=== PATIENT | female | born 1960 | race Hispanic/Latino ===

== ENCOUNTER 2018-02-04 11:53 | Emergency (ER) | payer MEDICARE ==
[~2018-02-04] VITALS: Ht 167.6 cm; Wt 103.0 kg
[~2018-02-04 11:53] MED LIST: ACIDOPHILUS1 EAC3; AMLODIPINE BESY10 MG PO; FOLIC ACID1 MG PO; LEVETIRACETAM500 MG PO; OMEPRAZOLE40 MG PO; PANTOPRAZOLE SO40 MG PO; POLYETHYLENE GL17 GM PO; PROPRANOLOL HCL20 MG PO; TIZANIDINE HCL4 MG PO; TRAZODONE HCL50 MG PO; VENTOLIN HFA18 GM INH; VITAMIN D1000 UNI1 PO
[2018-02-04] MEDS ORDERED: ALBUTEROL/IPRATROPIUM 3 ML NEB NEB ONE (13:00)
--- NOTE | 2018-02-04 13:31 | Diagnostic Imaging Report ---
EXAM: XR CHEST 2 VIEWS DATE: 02/04/2018 12:47 PM INDICATION: Pain COMPARISON: None FINDINGS: Lines and Tubes: Right chest wall port tip overlying SVC. Small kink present distal aspect of catheter. Heart and Mediastinum: Upper limits of normal. Lungs and Pleura: Defined opacities lung bases with no focal consolidation on lateral view. Bones and Soft Tissues: No acute findings. IMPRESSION: 1. Right chest wall port with distal aspect of catheter questionably kinked. 2. Ill-defined opacities lung bases could represent atelectasis or infectious process. No focal consolidation, however. Signed by: Dr. Shyam Licea MD on 02/04/2018 1:28 PM
[2018-02-04] MEDS ORDERED: AZITHROMYCIN250 MG PO (19:39)
--- OUTSIDE RECORDS SUMMARY | 2018-02-10 12:39 | XMS REPORT | Summary of Care ---
Author Author [facility] Organization [facility] Address Unknown Phone Unavailable Encounter HQ Kori(FIN) [id number] Date(s): 01/19/15 - 01/19/[address] [address]- Discharge Disposition: Home Attending Physician: Malini Diamond MD Admitting Physician: Malini Diamond MD Vital Signs No data available for this section Problem List Condition Effective Dates Status Health Status Informant Brain Active tumor(Confirmed) Carotid artery 03/04/11 Active stenosis1, 2 Chest pain3, 4 03/04/11 Active Craniotomy(Confirmed Active ) Family history: Active Tuberculosis(Confirm ed)5 Hyperlipidemia6, 7 Active Hypertension(Confirm Active ed) Hypertension(Confirm Active ed) Hypertensive Active disorder8, 9 Hypoglycemia(Confirm Active ed) [place] - Myocardial Active infarction(Confirmed ) Migraine(Confirmed) Active Mixed 03/04/11 Active [id number], 11 Peripheral vascular Active [id number], 13 Seizure(Confirmed) Active Sleep apnea14, 15 04/11/11 Active Stroke(Confirmed) Active 1Data migrated from [employer] on 09/26/14. 2Data migrated from [employer] on 09/26/14. 3Data migrated from [employer] on 09/26/14. 4Data migrated from [employer] on 09/26/14. 5currently lives with a uncle for 3 years with TB 6Data migrated from [employer] on 09/26/14. 7Data migrated from [employer] on 09/26/14. 8Data migrated from [employer] on 09/26/14. 9Data migrated from [employer] on 09/26/14. 10Data migrated from [employer] on 09/26/14. 11Data migrated from [employer] on 09/26/14. 12Data migrated from [employer] on 09/26/14. 13Data migrated from [employer] on 09/26/14. 14Data migrated from [employer] on 09/26/14. 15Data migrated from [employer] on 09/26/14. Allergies, Adverse Reactions, Alerts Substance Reaction Severity Status corticosteroids1, 2 HYPERTENSION AND VOMITING COMPLICATING Active , CHILDBIRTH AND THE PUERPERIUM Swelling, NOS lidocaine Hives Active Itching 1Data migrated from [employer] on 11/24/14. Originally documented as STEROIDS. Hives 2specifically decadron Medications No data available for this section Results No data available for this section Immunizations No data available for this section Procedures Procedure Date Related Diagnosis Body Site Hysterectomy Social History Social History Type Response Assessment and Plan No data available for this section
--- OUTSIDE RECORDS SUMMARY | 2018-02-10 12:39 | XMS REPORT | Summary of Care ---
Author Author [facility] Organization [facility] Address Unknown Phone Unavailable Encounter BILL Sheikh(FIN) [id number] Date(s): 06/05/16 - 06/05/16 [facility] [address], [place], [place] [address]- [phone] Discharge Diagnosis: Atypical chest pain Discharge Diagnosis: Acute hypokalemia Discharge Diagnosis: Aching headache Discharge Diagnosis: Accelerated essential hypertension Discharge Disposition: Home or Self Care Attending Physician: Arpit Chu MD Vital Signs 1 2 3 Most recent to oldest [Reference Range]: 167.64 cm (06/05/16 7:31 PM) Height 98.1 DegF (06/05/16 7:31 PM) Temperature Oral [96.4-99.1 DegF] 139/65 mmHg (06/05/16 10:00 PM) 136/63 mmHg (06/05/16 9:30 PM) 149/63 mmHg *HI* (06/05/16 9:00 PM) Blood Pressure [90-140/60-90 mmHg] 20 BRMIN (06/05/16 10:00 PM) 20 BRMIN (06/05/16 9:30 PM) 20 BRMIN (06/05/16 9:00 PM) Respiratory Rate [14-20 BRMIN] 60 bpm (06/05/16 10:00 PM) 66 bpm (06/05/16 9:30 PM) 70 bpm (06/05/16 9:00 PM) Peripheral Pulse Rate [60-100 bpm] 100 kg (06/05/16 7:31 PM) Weight 35.58 m2 (06/05/16 7:31 PM) Body Mass Index Problem List Condition Effective Dates Status Health Status Informant Afib(Confirmed) Resolved Brain Active tumor(Confirmed) Carotid artery 03/04/11 Active stenosis1, 2 Chest pain3, 4 03/04/11 Active Craniotomy(Confirmed Active ) Family history: Active Tuberculosis(Confirm ed)5 Hyperlipidemia6, 7 Active Hypertension(Confirm Active ed) Hypertension(Confirm Active ed) Hypertensive Active disorder8, 9 Hypoglycemia(Confirm Active ed) Brain Resolved tumor(Confirmed) [place] - Myocardial Active infarction(Confirmed ) Migraine(Confirmed) Active Mixed 03/04/11 Active oxnnlgaeexmnrn17, 11 Peripheral vascular Active [id number], 13 Seizure(Confirmed) Active Sleep apnea14, 15 04/11/11 [...] documented as STEROIDS. Hives 2specifically decadron Medications diphenhydrAMINE 12.5 mg, Route: IVP, ONCE, Dosing Weight 100, kg, Priority: STAT, Start date: 20:18:00 [employer]LE [employer]TER, Stop date: 06/05/16 20:18:00 [employer] Start Date: 06/05/16 Stop Date: 06/05/16 Status: Completed ketOROLAC 30 mg, Route: IVP, Drug form: INJ, ONCE, Dosing Weight 100, kg, Priority: STAT, Start date: 06/05/16 20:18:00 PILE FABRIC KNITTER, Stop date: 06/05/16 20:18:00 PILE [employer] KNITTER Start Date: 06/05/16 Stop Date: 06/05/16 Status: Completed labetalol 20 mg, Route: IVP, ONCE, Dosing Weight 100, kg, Priority: STAT, Start date: 12/12 20:18:00 PILE FABRIC KNITTER, Stop date: 06/05/16 20:18:00 PILE [employer] KNITTER Start Date: 06/05/16 Stop Date: 06/05/16 Status: Completed metoclopramide 10 mg, Route: IVP, Drug form: INJ, ONCE, Dosing Weight 100, kg, Priority: STAT, Start date: 06/05/16 20:18:00 PILE FABRIC KNITTER, Stop date: 06/05/16 20:18:00 PILE F[employer]RIC KNITTER Start Date: 06/05/16 Stop Date: 06/05/16 Status: Completed potassium chloride 20 mEq oral tablet, extended release 40 mEq, 2 tab, Route: PO, Drug form: ERTAB, ONCE, Dosing Weight 100, kg, Priorit y: STAT, Start date: 06/05/16 22:23:00 PILE FABRIC KNITTER, Stop date: 06/05/16 22:23:00 PILE F[employer] KNITTER Notes: (Same as: K-Dur 20)"Do Not Crush" With food and full glass of water Start Date: 06/05/16 Stop Date: 06/05/16 Status: Completed Reglan 10 mg oral tablet 10 mg, PO, Q6H, PRN nausea/dizziness/headache, X 5 day, # 20 tab, 0 Refill(s) Start Date: 06/05/16 Stop Date: 06/10/16 Status: Ordered Saline Flush 0.9% 10 mL, Route: IVP, Drug Form: INJ, Dosing Weight 100, kg, PRN, PRN Line Flush, S tart date: 06/05/16 20:18:00 PILE FABRIC KNITTER, Duration: 1 day, Stop date: 06/06/16 20:17:00 PILE [employer] KNITTER Notes: (Same as: BD Posiflush) Start Date: 06/05/16 Stop Date: 06/06/16 Status: Discontinued Ultram 50 mg oral tablet 1 - 2 tabs, PO, Q6H, PRN Pain Score 6-10, X 4 day, # 20 tab, 0 Refill(s) Start Date: 06/05/16 Stop Date: 06/09/16 Status: Ordered Results ELECTROLYTES Most recent to 1 oldest [Reference Range]: Sodium Lvl [135-145 143 mEq/L mEq/L] (06/05/16 8:23 PM) Potassium Lvl 3.3 mEq/L [3.5-5.1 mEq/L] *LOW* (06/05/16 8:23 PM) Chloride Lvl [95-109 105 mEq/L mEq/L] (06/05/16 8:23 PM) CO2 [24-32 mEq/L] 30 mEq/L (06/05/16 8:23 PM) AGAP [10.0-20.0 11.3 mEq/L mEq/L] (06/05/16 8:23 PM) CHEM PANEL Most recent to 1 oldest [Reference Range]: Creatinine Lvl 0.58 mg/dL [0.50-1.40 mg/dL] (06/05/16 8:23 PM) eGFR 102 mL/min/1.73m2 1 *NA* (06/05/16 8:23 PM) BUN [7-22 mg/dL] 8 mg/dL (06/05/16 8:23 PM) B/C Ratio [6-25] 14 (06/05/16 8:23 PM) Glucose Lvl [70-99 102 mg/dL mg/dL] *HI* (06/05/16 8:23 PM) Total Protein 8.0 g/dL [6.4-8.4 g/dL] (06/05/16 8:23 PM) Albumin Lvl [3.5-5.0 4.0 g/dL g/dL] (06/05/16 8:23 PM) Globulin [2.7-4.2 4.0 g/dL g/dL] (06/05/16 8:23 PM) A/G Ratio [0.7-1.6] 1.0 (06/05/16 8:23 PM) Calcium Lvl 9.1 mg/dL [8.5-10.5 mg/dL] (06/05/16 8:23 PM) ALT [0-65 unit/L] 43 unit/L (06/05/16 8:23 PM) AST [0-37 unit/L] 28 unit/L (06/05/16 8:23 PM) Alk Phos [39-136 185 unit/L unit/L] *HI* (06/05/16:23 PM) Bili Total [0.2-1.3 0.3 mg/dL mg/dL] (06/05/16 8:23 PM) 1Result Comment: The eGFR is calculated using the CKD-EPI formula. In most young, healthy individuals the eGFR will be >90 mL/min/1.73m2. The eGFR declines with age. An eGFR of 60-89 may be normal in some populations, particularly the elderly, for whom the CKD-EPI formula has not been extensively validated. Use of the eGFR is not recommended in the following populations: Individuals with unstable creatinine concentrations, including patients and those with serious co-morbid conditions. Patients with extremes in muscle mass or diet. The data above are obtained from the National Kidney Disease Education Program ( NKDEP) which additionally recommends that when the eGFR is used in patients with extremes of body mass index for purposes of drug dosing, the eGFR should be mul tiplied by the estimated BMI. CARDIAC ENZYMES Most recent to 1 oldest [Reference Range]: Total CK [12-191 81 unit/L unit/L] (06/05/16:23 PM) Troponin-I 0.02 ng/mL [0.00-0.40 ng/mL] (06/05/16 8:23 PM) HEMATOLOGY Most recent to 1 oldest [Reference Range]: WBC [3.7-10.4 K/CMM] 11.1 K/CMM *HI* (06/05/16:23 PM) RBC [4.20-5.40 4.93 M/CMM M/CMM] (06/05/16 8:23 PM) Hgb [12.0-16.0 g/dL] 14.6 g/dL (06/05/16 8:23 PM) Hct [36.0-48.0 %] 43.0 % (06/05/16 8:23 PM) MCV [80.0-98.0 fL] 87.3 fL (06/05/16 8:23 PM) MCH [27.0-31.0 pg] 29.7 pg (06/05/16 8:23 PM) MCHC [32.0-36.0 34.0 g/dL g/dL] (06/05/16 8:23 PM) RDW [11.5-14.5 %] 12.2 % (06/05/16 8:23 PM) Platelet [133-450 384 K/CMM K/CMM] (06/05/16 8:23 PM) MPV [7.4-10.4 fL] 8.7 fL (06/05/16 8:23 PM) Segs [45.0-75.0 %] 63.3 % (06/05/16 8:23 PM) Lymphocytes 28.1 % [20.0-40.0 %] (06/05/16 8:23 PM) Monocytes [2.0-12.0 6.3 % %] (06/05/16 8:23 PM) Eosinophils [0.0-4.0 1.4 % %] (06/05/16 8:23 PM) Basophils [0.0-1.0 0.9 % %] (06/05/16 8:23 PM) Segs-Bands # 7.0 K/CMM [1.5-8.1 K/CMM] (06/05/16 8:23 PM) Lymphocytes # 3.1 K/CMM [1.0-5.5 K/CMM] (06/05/16 8:23 PM) Monocytes # [0.0-0.8 0.7 K/CMM K/CMM] (06/05/16 8:23 PM) Eosinophils # 0.2 K/CMM [0.0-0.5 K/CMM] (06/05/16 8:23 PM) Basophils # [0.0-0.2 0.1 K/CMM K/CMM] (06/05/16 8:23 PM) PT [12.0-14.7 12.8 seconds seconds] (06/05/16 8:23 PM) INR [0.85-1.17] 0.94 (06/05/16 8:23 PM) PTT [22.9-35.8 31.8 seconds seconds] (06/05/16 8:23 PM) Immunizations No data available for this section Procedures Procedure Date Related Diagnosis Body Site Hysterectomy Social History Social History Type Response Smoking Status Former smoker; Type: Cigarettes; Ready to change: Yes; Concerns about tobacco use in household: No; Exposure to Tobacco Smoke None; Cigarette Smoking Last 365 Days No; Reg Smoking Cessation Counseling No Assessment and Plan No data available for this section
--- OUTSIDE RECORDS SUMMARY | 2018-02-10 12:39 | XMS REPORT | CCD ---
Author Author Auto Generated Organization [facility] Address Unknown Phone Unavailable Care Team Providers Care Clinical Coordinator Name Role Phone Calvin Rehman CP Allergies, Adverse Reactions, Alerts Substance Reaction Status corticosteroids1 HYPERTENSION AND VOMITING COMPLICATING , Active CHILDBIRTH AND THE PUERPERIUM Swelling, NOS lidocaine Hives Active Itching 1specifically decadron Problem List Condition Effective Dates Status Brain tumor Active Craniotomy Active Family history: Tuberculosis1 Active Hypertension Active Hypertension Active Hypoglycemia Active ID - Myocardial infarction Active Migraine Active Seizure Active Stroke Active 1currently lives with a uncle for 3 years with TB Medications Medication Instructions Start Date End Date Status [place] 5/325 oral 1 tab, Route: PO, Dosing Weight 01/04/2013 01/04/2013 Completed tablet 99.545, kg, ONCE, Start date: 01/04/13 9:12:00, Stop date: 01/04/13 9:12:00 Pyridium 100 mg, Route: PO, ONCE, Dosing 01/04/2013 01/04/2013 Completed Weight 99.545, kg, Priority: STAT, Start date: 01/04/13 9:12:00, Stop date: 01/04/13 9:12:00 Diflucan 100 mg oral 100 mg, 1 tab, PO, Daily, 2 tab, 01/04/2013 01/06/2013 Ordered tablet Substitution Allowed, TAB Motrin 600 mg oral 600 mg, 1 tab, PO, Q6H, PRN, take 01/04/2013 Ordered tablet with food, 30 tab, Pain, Substitution Allowed take with food [place] 5/325 oral 1 tab, PO, Q4H, PRN, 15 tab, for 01/04/2013 Ordered tablet pain, Substitution Allowed, Maintenance, TAB Zofran 4 mg oral 4 mg, 1 tab, PO, BID, 10 tab, 01/04/2013 Ordered tablet Substitution Allowed Pyridium 100 mg oral 100 mg, 1 tab, PO, TID, 21 tab, 01/04/2013 01/11/2013 Ordered tablet Substitution Allowed, TAB Bactrim DS oral 1 tab, PO, BID, 28 tab, 01/04/2013 01/18/2013 Ordered tablet Substitution Allowed, Maintenance, TAB Vital Signs Most recent to oldest [Reference Range]: 1 Height 170.18 cm (01/04/2013 08:47:00) Temperature Oral [96.4-99.1 DegF] 97.2 DegF (01/04/2013 08:47:00) Systolic Blood Pressure [90-140 mmHg] 134 mmHg (01/04/2013 08:47:00) Diastolic Blood Pressure [60-90 mmHg] 80 mmHg (01/04/2013 08:47:00) Respiratory Rate [14-20 BRMIN] 18 BRMIN (01/04/2013 08:47:00) Peripheral Pulse Rate [60-100 bpm] 78 bpm (01/04/2013 08:47:00) Weight 99.545 kg (01/04/2013 08:47:00) Results URINALYSIS Most recent to oldest [Reference Range]: 1 UA Turbidity [Clear] Slight Cloudy (01/04/2013 09:01:00) UA Color [Yellow] Yellow *NA* (01/04/2013 09:01:00) UA pH [5.0-8.0] 6.0 (01/04/2013 09:01:00) UA Spec Grav [<=1.030] 1.020 (01/04/2013 09:01:00) UA Glucose [Negative] Negative (01/04/2013 09:01:00) UA Blood [Negative] Large *ABN* (01/04/2013 09:01:00) UA Ketones [Negative] Negative *NA* (01/04/2013 09:01:00) UA Protein [Negative mg/dL] 30 mg/dL *ABN* (01/04/2013 09:01:00) UA Urobilinogen [0.1-1.0 EU/dL] 0.2 EU/dL (01/04/2013 09:01:00) UA Bili [Negative] Negative *NA* (01/04/2013 09:01:00) UA Leuk Est [Negative] Moderate *ABN* (01/04/2013 09:01:00) UA Nitrite [Negative] Positive *ABN* (01/04/2013 09:01:00) UA WBC [None Seen /HPF] 21-50 /HPF *ABN* (01/04/2013 09:01:00) UA RBC [0-2 /HPF] >100 /HPF *ABN* (01/04/2013 09:01:00) UA Bacteria [None Seen /HPF] Moderate /HPF (01/04/2013 09:01:00) UA Sq Epi [Few /LPF] Few /LPF (01/04/2013 09:01:00) Micro? Performed (01/04/2013 09:01:00)
--- OUTSIDE RECORDS SUMMARY | 2018-02-10 12:39 | XMS REPORT | CCD ---
Author Author Auto Generated Organization [facility] Address Unknown Phone Unavailable Care Team Providers Care Adaptive Physical Educator Name Role Phone Aurora Barton Keerthi CP [phone] PCP, None CP Unavailable [employer], Login CP Unavailable Anjali Heredia CP Unavailable Jess Hale CP Shakila Sethi CP [phone] Ajay Tapia RP Allergies, Adverse Reactions, Alerts Substance Reaction Status anabolic steroids high blood pressure?? Active NKDA ?? Canceled Problem List Condition Effective Dates Status Craniotomy ?? Active Vital Signs Most recent to oldest [Reference Range]: 1 Height 167.64 cm (01/17/2011 12:37:00) ?? Weight 86.364 kg (01/17/2011 12:37:00) ??
--- OUTSIDE RECORDS SUMMARY | 2018-02-10 12:39 | XMS REPORT | Continuity of Care Document ---
Author Author [facility] Interface Address Unknown Phone Unavailable Problems Problem Status Onset Date Classification Date Reported Comments Source Discharge Diagnosis: Atypical chest pain 06/05/2016 06/08/2016 [facility] Dis[facility] Diagnosis: Acute hypokalemia 06/05/2016 06/08/2016 [facility] Dis[facility] Diagnosis: Aching headache 06/05/2016 06/08/2016 [facility] Diagnosis: Accelerated essential hypertension 06/05/2016 06/08/2016 [facility] CHEST PAIN HEADACHE Active 06/05/2016 [facility] 592.0 Active 01/19/2015 [facility] 592.0 - CALCULUS OF KID Active 01/19/2015 [facility] UNABLE TO URINATE Active 01/04/2013 [facility] Sleep apnea<sup>14, 15</sup> Active 04/11/2011 Problem 06/08/2016 Data migrated from [employer] on 09/26/14. [facility] Carotid artery stenosis<sup>1, 2</sup> Active 03/04/2011 Problem 06/08/2016 Data migrated from [employer] on 09/26/14. [facility] Chest pain<sup>3, 4</sup> Active 03/04/2011 Problem 06/08/2016 Data migrated from [employer] on 09/26/14. [facility] Mixed hyperlipidemia<sup>10, 11</sup> Active 03/04/2011 Problem 06/08/2016 Data migrated from [employer] on 09/26/14. [facility] RADICULOPATHY; PARESTHESIA Active 01/16/2011 [facility] Brain tumor Active Problem 01/06/2013 [facility] Craniotomy Active Problem 01/06/2013 [facility] Family history: Tuberculosis<sup>1</sup> Active Problem 01/06/2013 1currently lives with a uncle for 3 years with TB [facility] Hypertension Active Problem 01/06/2013 [facility] Hypoglycemia Active Problem 01/06/2013 [facility] [place] Myocardial infarction Active Problem 01/06/2013 [facility] Migraine Active Problem 01/06/2013 [facility] Seizure Active Problem 01/06/2013 [facility] Stroke Active Problem 01/06/2013 [facility] Afib Resolved Problem 06/08/2016 [facility] Brain tumor Active Problem 06/08/2016 [facility] Craniotomy Active Problem 06/08/2016 [facility] Family history: Tuberculosis<sup>5</sup> Active Problem 06/08/2016 currently lives with a uncle for 3 years with TB [facility] Hyperlipidemia<sup>6, 7</sup> Active Problem 06/08/2016 Data migrated from [employer] on 09/26/14. [facility] Hypertension Active Problem 06/08/2016 [facility] Hypertensive disorder<sup>8, 9</sup> Active Problem 06/08/2016 Data migrated from 2nd Watch on 09/26/14. [facility] Hypoglycemia Active Problem 06/08/2016 [facility] [place] - Myocardial infarction Active Problem 06/08/2016 [facility] Migraine Active Problem 06/08/2016 [facility] Peripheral vascular disease<sup>12, 13</sup> Active Problem 06/08/2016 Data migrated from 2nd Watch on 09/26/14. [facility] Seizure Active Problem 06/08/2016 [facility] Stroke Active Problem 06/08/2016 [facility] SKIN SENSATION DISTURB Active [facility] LUMBOSACRAL NEURITIS NOS Active [facility] SPIN STEN,LUMBR WO CHON Active [facility] CALCULUS OF KIDNEY Active [facility] Medications Medication Details Route Status Patient Instructions Ordering Provider Order Date Source Metoclopramide 10 MG Oral Tablet [Reglan] 10 mg, PO, Q6H, PRN nausea/dizziness/headache, X 5 day, # 20 tab, 0 Refill(s) Active 06/06/2016 [facility] tramadol hydrochloride 50 MG Oral Tablet [Ultram] 1 - 2 tabs, PO, Q6H, PRN Pain Score 6-10, X 4 day, # 20 tab, 0 Refill(s) Active 06/06/2016 [facility] potassium chloride 20 mEq oral tablet, extended release 40 mEq, 2 tab, Route: PO, Drug form: ERTAB, ONCE, Dosing Weight 100, kg, Priority: STAT, Start date: 06/05/16 22:23:00 [employer] CONTINUOUS [employer], Stop date: 06/05/16 22:23:00 CSTNotes: (Same as: K-Dur 20) "Do Not Crush" With food and full glass of water Inactive 06/06/2016 [facility] Diphenhydramine 12.5 mg, Route: IVP, ONCE, Dosing Weight 100, kg, Priority: STAT, Start date: 06/05/16 20:18:00 [employer] CONTINUOUS PROCESS, Stop date: 06/05/16 20:18:00 [employer] CONTINUOUS PROCESS Inactive 06/06/2016 [facility] Metoclopramide 10 mg, Route: IVP, Drug form: INJ, ONCE, Dosing Weight 100, kg, Priority: STAT, Start date: 06/05/16 20:18:00 [employer] CONTINUOUS PROCESS, Stop date: 06/05/16 20:18:00 [employer] CONTINUOUS PROCESS Inactive 06/06/2016 [facility] Ketorolac 30 mg, Route: IVP, Drug form: INJ, ONCE, Dosing Weight 100, kg, Priority: STAT, Start date: 06/05/16 20:18:00 [employer] CONTINUOUS PROCESS, Stop date: 06/05/16 20:18:00 [employer] CONTINUOUS PROCESS Inactive 06/06/2016 [facility] Labetalol 20 mg, Route: IVP, ONCE, Dosing Weight 100, kg, Priority: STAT, Start date: 06/05/16 20:18:00 [employer] CONTINUOUS PROCESS, Stop date: 06/05/16 20:18:00 [employer] CONTINUOUS PROCESS Inactive 06/06/2016 [facility] Saline Flush 0.9% 10 mL, Route: IVP, Drug Form: INJ, Dosing Weight 100, kg, PRN, PRN Line Flush, Start date: 06/05/16 20:18:00 [employer] CONTINUOUS PROCESS, Duration: 1 day, Stop date: 06/06/16 20:17:00 CSTNotes: (Same as: BD Posiflush) No Longer Active 06/06/2016 [facility] Diflucan 100 mg oral tablet 100 mg, 1 tab, PO, Daily, 2 tab, Substitution Allowed, TAB PO Active [place] 01/04/2013 [facility] Motrin 600 mg oral tablet 600 mg, 1 tab, PO, Q6H, PRN, take with food, 30 tab, Pain, Substitution Allowedtake with food PO Active [place] 01/04/2013 [facility] [place] 5/325 oral tablet 1 tab, PO, Q4H, PRN, 15 tab, for pain, Substitution Allowed, Maintenance, TAB PO Active [place] 01/04/2013 [facility] Zofran 4 mg oral tablet 4 mg, 1 tab, PO, BID, 10 tab, Substitution Allowed PO Active [place] 01/04/2013 [facility] Pyridium 100 mg oral tablet 100 mg, 1 tab, PO, TID, 21 tab, Substitution Allowed, TAB PO Active [place] 01/04/2013 [facility] Bactrim DS oral tablet 1 tab, PO, BID, 28 tab, Substitution Allowed, Maintenance, TAB PO Active [place] 01/04/2013 [facility] [place] 5/325 oral tablet 1 tab, Route: PO, Dosing Weight 99.545, kg, ONCE, Start date: 01/04/13 9:12:00, Stop date: 01/04/13 9:12:00 PO No Longer Active [place] 01/04/2013 [facility] Pyridium 100 mg, Route: PO, ONCE, Dosing Weight 99.545, kg, Priority: STAT, Start date: 01/04/13 9:12:00, Stop date: 01/04/13 9:12:00 PO No Longer Active [place] 01/04/2013 [facility] Allergies, Adverse Reactions, Alerts Substance Category Reaction Severity Reaction type Status Date Reported Comments Source corticosteroids<sup>1, 2</sup> Assertion HYPERTENSION AND VOMITING COMPLICATING , CHILDBIRTH AND THE PUERPERIUM, Swelling, NOS Drug allergy Active 03/04/2011 specifically decadron [facility] anabolic steroids propensity to adverse reactions to substance high blood pressure Adverse Reaction Active [facility] lidocaine Assertion Hives, Itching Drug allergy Active [facility] corticosteroids<sup>1</sup> drug allergy HYPERTENSION AND VOMITING COMPLICATING , CHILDBIRTH AND THE PUERPERIUM, Swelling, NOS Allergy Active 1specifically decadron [facility] Immunizations Immunization Date Given Site Status Last Updated Comments Source Results Order Name Results Value Reference Range Date Interpretation Comments Source CARDIAC ENZYMES Troponin-I 0.02 ng/mL 0.00 - 0.40 06/06/2016 [facility] CARDIAC ENZYMES Total CK 81 unit/L 12 - 191 06/06/2016 [facility] CHEM PANEL A/G Ratio 1.0 0.7 - 1.6 06/06/2016 [facility] CHEM PANEL Globulin 4.0 g/dL 2.7 - 4.2 06/06/2016 [facility] CHEM PANEL AGAP 11.3 meq/L 10.0 - 20.0 06/06/2016 [facility] CHEM PANEL B/C Ratio 14 6 - 25 06/06/2016 [facility] CHEM PANEL eGFR 102 mL/min/1.73m2 06/06/2016 Result Comment: The eGFR is calculated using the [...] from the National Kidney Disease Education Program (NKDEP) which additionally recommends that when the eGFR is used in patients with extremes of body mass index for purposes of drug dosing, the eGFR should be multiplied by the estimated BMI. [facility] CHEM PANEL Total Protein 8.0 g/dL 6.4 - 8.4 06/06/2016 [facility] CHEM PANEL AST 28 unit/L 0 - 37 06/06/2016 [facility] CHEM PANEL Calcium Lvl 9.1 mg/dL 8.5 - 10.5 06/06/2016 [facility]M PANEL Bili Total 0.3 mg/dL 0.2 - 1.3 06/06/2016 [facility] PAN[facility] Potassium Lvl 3.3 meq/L 3.5 - 5.1 06/06/2016 [facility] PAN[facility] Chloride Lvl 105 meq/L 95 - 109 06/06/2016 [facility] PAN[facility] CO2 30 meq/L 24 - 32 06/06/2016 [facility] CHEM PANEL Creatinine Lvl 0.58 mg/dL 0.50 - 1.40 06/06/2016 [facility] CHEM PANEL Sodium Lvl 143 meq/L 135 - 145 06/06/2016 [facility]M PANEL Glucose Lvl 102 mg/dL 70 - 99 06/06/2016 [facility] CHEM PANEL BUN 8 mg/dL 7 - 22 06/06/2016 [facility] CHEM PANEL Alk Phos 185 unit/L 39 - 136 06/06/2016 [facility] CHEM PANEL ALT 43 unit/L 0 - 65 06/06/2016 [facility] CHEM PANEL Albumin Lvl 4.0 g/dL 3.5 - 5.0 06/06/2016 [facility] HEMATOLOGY Lymphocytes 28.1 % 20.0 - 40.0 06/06/2016 [facility] HEMATOLOGY Segs-Bands # 7.0 K/CMM 1.5 - 8.1 06/06/2016 [facility] HEMATOLOGY Basophils 0.9 % 0.0 - 1.0 06/06/2016 [facility] HEMATOLOGY Eosinophils # 0.2 K/CMM 0.0 - 0.5 06/06/2016 [facility] HEMATOLOGY Monocytes # 0.7 K/CMM 0.0 - 0.8 06/06/2016 [facility] HEMATOLOGY Lymphocytes # 3.1 K/CMM 1.0 - 5.5 06/06/2016 [facility] HEMATOLOGY Basophils # 0.1 K/CMM 0.0 - 0.2 06/06/2016 [facility] HEMATOLOGY Monocytes 6.3 % 2.0 - 12.0 06/06/2016 [facility] HEMATOLOGY Eosinophils 1.4 % 0.0 - 4.0 06/06/2016 [facility] HEMATOLOGY Segs 63.3 % 45.0 - 75.0 06/06/2016 [facility] HEMATOLOGY PTT 31.8 s 22.9 - 35.8 06/06/2016 [facility] HEMATOLOGY PT 12.8 s 12.0 - 14.7 06/06/2016 [facility] HEMATOLOGY INR 0.94 0.85 - 1.17 06/06/2016 [facility] HEMATOLOGY RDW 12.2 % 11.5 - 14.5 06/06/2016 [facility] HEMATOLOGY Platelet 384 K/CMM 133 - 450 06/06/2016 [facility] HEMATOLOGY MPV 8.7 fL 7.4 - 10.4 06/06/2016 [facility] MCHC 34.0 g/dL 32.0 - 36.0 06/06/2016 [facility] HEMATOLOGY MCV 87.3 fL 80.0 - 98.0 06/06/2016 [facility] HEMATOLOGY WBC 11.1 K/CMM 3.7 - 10.4 06/06/2016 [facility] HEMATOLOGY RBC 4.93 M/CMM 4.20 - 5.40 06/06/2016 [facility] HEMATOLOGY Hct 43.0 % 36.0 - 48.0 06/06/2016 [facility] HEMATOLOGY MCH 29.7 pg 27.0 - 31.0 06/06/2016 [facility] HEMATOLOGY Hgb 14.6 g/dL 12.0 - 16.0 06/06/2016 [facility] Chest 2 views DX Chest 2 views DX Clinical Indication: Dizziness. Clinical Indication: Dizziness. Headache and right arm numbness today. Comparison: 07/08/2012. TECHNIQUE: PA and lateral chest radiographs were performed. (2 views) FINDINGS: LUNGS: Normal lung volumes. No interstitial or airspace opacities. No pleural effusions or pneumothorax. HEART AND MEDIASTINUM: The heart size is normal. The pulmonary vasculature is normal. There is a mildly tortuous thoracic aorta. The trachea is midline. There is a right subclavian Port-A-Cath in place without change. OSSEOUS STRUCTURES: Mild bilateral shoulder degenerative changes are seen. IMPRESSION: 1. No acute cardiopulmonary disease. SL: [id number] 06/05/2016 - - Read by: Marcos Roe MD Dictated Date/time: 06/05/16 20:31 Electronically Signed by: Marcos Roe MD 06/05/16 20:32 FINAL REPORT [facility] Brain wo contrast CT Brain wo contrast CT I have reviewed the examination and concur with the interpretation. Clinical Indication: Headache, right arm numbness, nausea Comparison: 08/15/2009 TECHNIQUE: CT images were obtained from the foramen magnum to the vertex without the use of intravenous contrast on a multidetector CT. Coronal and sagittal reconstructions were obtained. CT radiation dose DLP: 980.89 mGy-cm FINDINGS: BRAIN PARENCHYMA: Normal perez-white interfaces, sulci and gyri. No focal mass lesions on this noncontrast head CT. No mass effect, midline shift or edema. No intra-axial or extra-axial fluid collections, intraventricular or intraparenchymal hemorrhage. Pineal, brainstem, cerebellum and skull base regions appear unremarkable. No abnormal findings in the sella. VENTRICLES: Lateral ventricles, third and fourth ventricles appear unremarkable. Basilar cisterns are normal. ORBITS, MASTOIDS AND PARANASAL SINUSES: -Visualized orbits/retro-orbital spaces are within normal limits. - The paranasal sinuses are unremarkable. The mastoid air cells are clear. SKULL: No acute osseous abnormalities. Redemonstration of suboccipital craniectomy changes. No focal or asymmetric scalp swelling. If there is further concern for intracranial pathology or acute stroke, MRI of the brain may be performed for complete assessment. IMPRESSION: 1. No acute intracranial abnormality. No mass, hemorrhage, or subacute stroke. SL: [id number] 06/05/2016 - - Read by: Marcos Roe MD Dictated Date/time: 06/05/16 20:42 Electronically Signed by: Marcos Roe MD 06/05/16 20:43 FINAL REPORT - - Read by: Monet Baxter MD Dictated Date/time: 06/05/16 20:35 Electronically Signed by: Monet Baxter MD 06/05/16 20:39 FINAL REPORT [facility] Renal Stone CT Renal Stone CT Name: CHEO TERRY : 1960 SEX: F Ordering Physician: Malini Diamond Renal Stone CT : Jan 19, 2015 09:21:00 AM. CLINICAL INDICATION: 592.0 left flank pain Comparison Examination: None TECHNIQUE: Renal Stone protocol CT is performed without iodinated contrast. Multi-detector helical CT axial images were obtained from the level of the diaphragm through the lower pelvis. Coronal and sagittal reconstructions were obtained and viewed on the workstation. Dose: The total exam DLP is 782.52 mGy-cm. FINDINGS: Evaluation of the solid organs is limited by lack of IV contrast. CHEST: There are no pulmonary nodules or masses. There are no infiltrates or effusions. There is no evidence of interstitial lung disease. LIVER: The liver is hypodense consistent with fatty infiltration. GALLBLADDER: There are surgical clips in the gallbladder fossa consistent with prior cholecystectomy. There is no extrahepatic biliary ductal dilation. SPLEEN: The spleen is normal in size and there are no gross parenchymal abnormalities. PANCREAS: The pancrease is grossly unremarkable. The pancreatic duct is normal in caliber. ADRENAL GLANDS: The right adrenal gland is unremarkable. The left adrenal gland is unremarkable. KIDNEYS: TThere is no evidence of renal or ureteric calculi. There is no evidence of hydronephrosis. BOWEL: Lack of oral contrast limits evaluation of the bowel. The visualized esophagus is unremarkable. The stomach is unremarkable. The small bowel is normal in caliber and there is no evidence of masses or obstruction. The colon is normal in caliber, there are no masses, there is no evidence of diverticulosis or diverticulitis. LYMPH NODES: There is no evidence of mesenteric or inguinal lymphadenopathy. VASCULATURE: Evaluation of the of the abdominal vasculature is limited due to lack of contrast. SOFT TISSUES: There are no hernias or soft tissue masses. BONES: There is L4-L5 laminectomy. IMPRESSION: 1. Fatty infiltration of liver. 2. No evidence of renal or ureteral calculi. 3. Changes of prior L4-L5 laminectomy. SL: 24 01/19/2015 - - Read by: Augustus Ocampo MD Dictated Date/time: 01/19/15 09:24 Electronically Signed by: Augustus Ocampo MD 01/19/15 09:31 FINAL REPORT [facility] URINALYSIS UA RBC >100 /HPF *ABN* (01/04/2013 09:01:00) 0 - 2 01/04/2013 ABN [facility] URINALYSIS UA Bacteria Moderate /HPF (01/04/2013 09:01:00) None Seen 01/04/2013 Normal [facility] URINALYSIS UA WBC 21-50 /HPF *ABN* (01/04/2013 09:01:00) None Seen 01/04/2013 ABN [facility] URINALYSIS UA Sq Epi Few /LPF (01/04/2013 09:01:00) Few 01/04/2013 Normal [facility] URINALYSIS Micro? Performed (01/04/2013 09:01:00) 01/04/2013 Normal [facility] URINALYSIS UA Nitrite Positive *ABN* (01/04/2013 09:01:00) Negative 01/04/2013 ABN [facility] URINALYSIS UA Leuk Est Moderate *ABN* (01/04/2013 09:01:00) Negative 01/04/2013 ABN [facility] URINALYSIS UA Urobilinogen 0.2 EU/dL 0.1 - 1.0 01/04/2013 Normal [facility] URINALYSIS UA Blood Large *ABN* (01/04/2013 09:01:00) Negative 01/04/2013 ABN [facility] URINALYSIS UA Color Yellow *NA* (01/04/2013 09:01:00) Yellow 01/04/2013 NA [facility] URINALYSIS UA Ketones Negative *NA* (01/04/2013 09:01:00) Negative 01/04/2013 [facility] URINALYSIS UA Bili Negative *NA* (01/04/2013 09:01:00) Negative 01/04/2013 NA [facility] URINALYSIS UA Protein 30 mg/dL *ABN* (01/04/2013 09:01:00) Negative 01/04/2013 ABN [facility] URINALYSIS UA Glucose Negative (01/04/2013 09:01:00) Negative 01/04/2013 Normal [facility] URINALYSIS UA pH 6.0 5.0 - 8.0 01/04/2013 Normal [facility] URINALYSIS UA Turbidity Slight Cloudy (01/04/2013 09:01:00) Clear 01/04/2013 Normal [facility] URINALYSIS UA Spec Grav 1.020 <=1.030 01/04/2013 Normal [facility] Vital Signs Vital Sign Value Date Comments Source Heart Rate 60 06/06/2016 [facility] Respitory Rate 20 06/06/2016 [facility] Systolic (mm Hg) 139 06/06/2016 [facility] Diastolic (mm Hg) 65 06/06/2016 [facility] Heart Rate 66 06/06/2016 [facility] Systolic (mm Hg) 136 06/06/2016 [facility] Diastolic (mm Hg) 63 06/06/2016 [facility] Respitory Rate 20 06/06/2016 [facility] Heart Rate 70 06/06/2016 [facility] Systolic (mm Hg) 149 06/06/2016 [facility] Diastolic (mm Hg) 63 06/06/2016 [facility] Respitory Rate 20 06/06/2016 [facility] Weight 100 06/06/2016 [facility] Height 167.64 cm 06/06/2016 [facility] BMI Calculated 35.58 06/06/2016 [facility] Temperature Oral (F) 98.1 F 06/06/2016 [facility] Systolic (mm Hg) 134 01/04/2013 [facility] Heart Rate 78 01/04/2013 [facility] Temperature Oral (F) 97.2 F 01/04/2013 [facility] Diastolic (mm Hg) 80 01/04/2013 [facility] Respitory Rate 18 01/04/2013 [facility] Height 170.18 cm 01/04/2013 [facility] Weight 99.545 01/04/2013 [facility] Weight 86.364 01/17/2011 [facility] Height 167.64 cm 01/17/2011 [facility] Encounters Location Location Details Encounter Type Encounter Number Reason For Visit Attending Provider ADM Date DC Date Status Source [facility] Outpatient [id number] RADICULOPATHY; PARESTHESIA PORSHA POLLACK 01/17/2011 Active [facility] Not Sent Emergency [id number] CLARE DAVIS 01/04/2013 01/04/2013 Active [facility] Outpatient [id number] Malini Diamond 01/19/2015 01/20/2015 [facility] Emergency [id number] Arpit Chu 06/06/2016 06/06/2016 [facility] Outpatient [id number] RADICULOPATHY; PARESTHESIA PORSHA JACOBSON Active [facility] Procedures Procedure Code Date Perfomer Comments Source Hysterectomy [id number] [facility] Hysterectomy [id number] [facility]
== END 2018-02-04 20:14 | disposition home or self-care (01) ==
LOC: ER 11:53
DX: R07.89 Other chest pain (principal); I25.2 Old myocardial infarction; I10 Essential (primary) hypertension; E11.9 Type 2 diabetes mellitus without complications; Z85.841 Personal history of malignant neoplasm of brain; Z87.442 Personal history of urinary calculi; Z88.6 Allergy status to analgesic agent; Z88.5 Allergy status to narcotic agent; Z88.8 Allergy status to other drugs, medicaments and biological substances; R05 Cough
CPT/HCPCS: 71046; 93005; 99283

== ENCOUNTER 2019-01-29 12:43 | Emergency (ER) | payer MEDICARE ==
[~2019-01-29] VITALS: Ht 167.6 cm; Wt 103.0 kg
[~2019-01-29 12:43] MED LIST changes: +AZITHROMYCIN250 MG PO
--- OUTSIDE RECORDS SUMMARY | 2019-01-29 12:46 | XMS REPORT ---
Author [facility] Address Unknown Phone Unavailable Care Team Providers Care Escapement Maker Name Role Phone aMdie LEYVA Unavailable Unavailable Payers Payer Name Policy Type Policy Number Effective Date Expiration Date Problems This patient has no known problems. Allergies, Adverse Reactions, Alerts Allergy Name Allergy Type Status Severity Reaction(s) Onset Date Inactive Date Treating Clinician Comments lidocaine DA Active MO 2018-06-02 00:00:00 aspirin DA Active SV 2018-06-02 00:00:00 cortisone DA Active SV 2018-06-02 00:00:00 lidocaine DA Active MO 2018-05-22 00:00:00 aspirin DA Active SV 2018-05-22 00:00:00 cortisone DA Active SV 2018-05-22 00:00:00 STEROIDS DA Active SV 2018-05-22 00:00:00 Medications This patient has no known medications. Results Test Description Test Time Test Comments Text Results Atomic Results Result Comments DIAG MAMM BILATERAL CAD DIGITAL 2019-01-14 14:07:59 - DIAG MAMM BILATERAL CAD DIGITALBILATERAL DIGITAL DIAGNOSTIC MAMMOGRAM WITH CAD: 01/14/2019CLINICAL: Abnormal clinical breast exam. Current mammographic images were evaluated by either a [employer] M-Vu or a [employer] ImageChecker CAD (computer aided detection system). No prior exams were available for comparison. The tissue of both breasts is predominantly fatty. There are benign nodules in the right breast. No suspicious mass, architectural distortion, malignant type calcification, or lymph node abnormality detected. INCOMPLETE ASSESSMENT: ADDITIONAL IMAGING EVALUATION RECOMMENDEDBilateral ultrasound pending for additional evaluation. Resume annual screening mammography in one year. - BREAST ULTRASOUND BILATERALULTRASOUND OF BOTH BREASTS AND BOTH AXILLA: 01/14/2019No prior exams were available for comparison. Real-time ultrasound of both breasts and both axilla and clinical breast exam were performed. The palpable mass felt by the patient is a benign 5 mm sebaceous cyst in the left breast at 11 o'clock, 14 cm from the nipple. No abnormalities were seen sonographically in either axilla. Benign cysts were seen in the right breast that correspond to the mammographic findings. IMPRESSION: BENIGN There is no sonographic evidence of malignancy. Resume annual screening mammography in one year. Nancy Farrell M.D. dm/:01/14/2019 14:07:59 Entry: - 01/16/2019 11:39:06Imaging Technologist: Viviana MACKAY, [facility]-FWletter sent: BIRADS 1-2 Combo FU Letter Mammogram BI-RADS: 0 Indeterminate Ultrasound BI-RADS: 2 Benign BREAST ULTRASOUND BILATERAL 2019-01-14 14:07:59 - DIAG MAMM BILATERAL CAD DIGITALBILATERAL DIGITAL DIAGNOSTIC MAMMOGRAM WITH CAD: 01/14/2019CLINICAL: Abnormal clinical breast exam. Current mammographic images were evaluated by either a [employer] or a [employer] ImageChecker CAD (computer aided detection system). No prior exams were available for comparison. The tissue of both breasts is predominantly fatty. There are benign nodules in the right breast. No suspicious mass, architectural distortion, malignant type calcification, or lymph node abnormality detected. INCOMPLETE ASSESSMENT: ADDITIONAL IMAGING EVALUATION RECOMMENDEDBilateral ultrasound pending for additional evaluation. Resume annual screening mammography in one year. - BREAST ULTRASOUND BILATERALULTRASOUND OF BOTH BREASTS AND BOTH AXILLA: 01/14/2019No prior exams were available for comparison. Real-time ultrasound of both breasts and both axilla and clinical breast exam were performed. The palpable mass felt by the patient is a benign 5 mm sebaceous cyst in the left breast at 11 o'clock, 14 cm from the nipple. No abnormalities were seen sonographically in either axilla. Benign cysts were seen in the right breast that correspond to the mammographic findings. IMPRESSION: BENIGN There is no sonographic evidence of malignancy. Resume annual screening mammography in one year. Nancy Farrell M.D. dm/:01/14/2019 14:07:59 Entry: [facility] 01/16/2019 11:39:06Imaging Technologist: Viviana Banerjee FW, [facility]-FWletter sent: BIRADS 1-2 Combo FU Letter Mammogram BI-RADS: 0 Indeterminate Ultrasound BI-RADS: 2 Benign BASIC METABOLIC PANEL 2018-06-03 06:43:00 SODIUM (test code=NA) 145 mmol/L 136-145 POTASSIUM (test code=K) 3.8 mmol/L 3.5-5.1 CHLORIDE (test code=CL) 105.0 mmol/L 98-107 CARBON DIOXIDE (test code=CO2) 29.1 mmol/L 21-32 GLUCOSE (test code=GLU) 100 mg/dL 70-110 BLOOD UREA NITROGEN (test code=BUN) 8 mg/dL 7-18 GLOMERULAR FILTRATION RATE (test code=GFR) 87.1 >60 Unit of measure: mL/min/1.73 [id number] Range:Healthy Adults >90 mL/min/1.73 m2 For Chronic Kidney Disease: Stage II Mild Decrease in GFR 60-90 Stage III Moderate Decrease in GFR 30-59 Stage IV Severe Decrease in GFR 15-29 Stage V Kidney Failure <15 CREATININE (test code=CREAT) 0.69 mg/dL 0.55-1.30 CALCIUM (test code=CA) 9.0 mg/dL 8.2-10.1 HGB [id number] 05:53:00* Test Item Value Reference Range Comments HEMOGLOBIN (test code=HGB) 13.9 g/dL 12-16 HEMATOCRIT (test code=HCT) 40.9 % 37-47 - XR KNEE 1 OR 2 V [id number] 19:33:00 Patient Name: CHEO TERRY Unit No: [id number] EXAMS: CPT CODE: [id number] XR KNEE 1 OR 2 [place] [id number] IMAGES PROVIDED: 2 FINDINGS: Postoperative changes from left total knee arthoplasty demonstrated without evidence of immediate complication. No acute fracture is visualized. IMPRESSION: Postoperative exam as above. at 1933 Reported and signed by: Calvin Reynolds M.D. CC: Arpit Hough MD Technologist: JUANITA MONGE RT(R) Transcribed D/ (1932) Brian.KIMANIJ [facility] NAME: CHEO TERRY [address] [facility] PHYS: Arpit Bauman MD : 1960 AGE: 58 SEX: F [place], [place] [address] LOC: Y.316 A PHONE #: [phone] EXAM DATE: 06/02/2018 STATUS: ADM IN FAX #: [phone] RAD #: D/C DT PAGE 1 Signed Report Patient Name: CHEO TERRY Unit No: [id number] EXAMS: CPT CODE: [id number] XR KNEE 1 OR 2 V LT [id number] <Continued> Orig Print D/T: S: 06/02/2018 (1935) [facility] NAME: CHEO CAMPOS [address] [facility] PHYS: Arpit Canales MD : 1960 AGE: 58 SEX: F [place] [address] LOC: Y. 316 A PHONE #: [phone] EXAM DATE: 06/02/2018 STATUS: ADM IN FAX #: [phone] RAD #: D/C DT PAGE 2 Signed Report COMPREHENSIVE METABOLIC [id number] 11:04:00* Test Item Value Reference Range Comments SODIUM (test code=NA) 144 mmol/L 136-145 POTASSIUM (test code=K) 3.4 mmol/L 3.5-5.1 CHLORIDE (test code=CL) 105.0 mmol/L 98-107 CARBON DIOXIDE (test code=CO2) 26.0 mmol/L 21-32 GLUCOSE (test code=GLU) 94 mg/dL 70-110 BLOOD UREA NITROGEN (test code=BUN) 9 mg/dL 7-18 GLOMERULAR FILTRATION RATE (test code=GFR) 120.7 >60 Unit of measure: mL/min/1.73 [id number] Range:Healthy Adults >90 mL/min/1.73 m2 For Chronic Kidney Disease: Stage II Mild Decrease in GFR 60-90 Stage III Moderate Decrease in GFR 30-59 Stage IV Severe Decrease in GFR 15-29 Stage V Kidney Failure <15 CREATININE (test code=CREAT) 0.52 mg/dL 0.55-1.30 TOTAL PROTEIN (test code=PROT) 7.0 g/dL 6.4-8.2 ALBUMIN (test code=ALB) 4.0 g/dL 3.4-5.0 GLOBULIN (test code=GLOB) 3.0 g/dL 2.2-4.2 ALBUMIN/GLOBULIN RATIO (test code=A/G) 1.3 0.7-2.0 CALCIUM (test code=CA) 9.2 mg/dL 8.2-10.1 BILIRUBIN TOTAL (test code=BILT) 0.49 mg/dL 0.2-1.00 SGOT/AST (test code=AST) 24.0 U/L 15-37 SGPT/ALT (test code=ALT) 26.0 U/L 12-78 Please note new normal range. ALKALINE PHOSPHATASE TOTAL (test code=ALKP) 135 U/L 46-116 CBC W/AUTO [id number] 10:39:00* Test Item Value Reference Range Comments WHITE BLOOD CELL (test code=WBC) 8.3 K/mm3 5.8-11.0 RED BLOOD CELL (test code=RBC) 4.80 M/mm3 4.2-5.4 HEMOGLOBIN (test code=HGB) 14.4 g/dL 12-16 HEMATOCRIT (test code=HCT) 41.3 % 37-47 MEAN CELL VOLUME (test code=MCV) 86 fL 80-98 MEAN CELL HGB (test code=MCH) 30.0 pg 27-34 MEAN CELL HGB CONCENTRATION (test code=MCHC) 34.9 g/dL 30.8-34.1 RED CELL DISTRIBUTION WIDTH (test code=RDW) 12.3 % 11-16 PLT (test code=PLT) 349 K/mm3 130-400 MEAN PLATELET VOLUME (test code=MPV) 10.0 fL 8.9-12.1 NEUTROPHIL % (test code=NT%) 65.4 % 45-70 LYMPHOCYTE % (test code=LY%) 25.9 % 20-40 MONOCYTE % (test code=MO%) 6.1 % 3-10 EOSINOPHIL % (test code=EO%) 1.9 % 1-5 BASOPHIL % (test code=BA%) 0.5 % 0.0-1.1 NEUTROPHIL # (test code=NT#) 5.42 K/mm3 2.00-7.50 LYMPHOCYTE # (test code=LY#) 2.15 K/mm3 1.50-4.00 MONOCYTE # (test code=MO#) 0.51 K/mm3 0.2-0.8 EOSINOPHIL # (test code=EO#) 0.16 K/mm3 0.04-0.4 BASOPHIL # (test code=BA#) 0.04 K/mm3 0.02-0.10 MANUAL DIFF REQUIRED (test code=MDIFF) NO MANUAL DIFF NUCLEATED RED BLOOD CELL (test code=NRBC) 0 % 0-0 CHEST 2 [id number] 13:27:00 [place] [address] Patient Name: CHEO TERRY MR #: [id number] : 1960 Age/Sex: 58/F Req #: [id number] Adm Physician: Ordered by: SHERRY FARRELL [employer]CTIONS SUPERVISOR Report #: [id number] Location: ER Room/Bed: Procedure: [id number] DX/CHEST 2 VIEWS Exam Da te: 02/04/18 Exam Time: 1300 REPORT STATUS: Sig bishop EXAM: XR CHEST 2 VIEWS DATE: 02/04/2018 12:47 PM INDICATION: Pa in COMPARISON: None FINDINGS: Lines and Tubes: Right chest wall p ort tip overlying SVC. Small kink present distal aspect of catheter. Hear t and Mediastinum: Upper limits of normal. Lungs and Pleura: Defined opacit ies lung bases with no focal consolidation on lateral view. Bones and Sof t Tissues: No acute findings. IMPRESSION: 1. Right chest wall port with distal aspect of catheter questionably kinked. 2. Ill-defined opacities l alec bases could represent atelectasis or infectious process. No focal consolid ation, however. Signed by: Dr. Rajwinder Licea MD on 02/04/2018 1:28 PM Dictated By: RAJWINDER LICEA MD 27 Transcribed By: ELISSA on 02/04/181327 COPY TO: SHERRY FARRELL NP
[2019-01-29] MEDS ORDERED: HYDROCODONE/APAP 7.5MG-325MG 1 EA TAB PO PRN (13:00)
--- NOTE | 2019-01-29 13:55 | Diagnostic Imaging Report ---
EXAMINATION: KNEE RIGHT THREE VIEWS, ANKLE 3 + VIEWS RIGHT, FOOT RIGHT COMPLETE INDICATION: Trauma COMPARISON: None FINDINGS: Right knee: No acute fracture or dislocation. Alignment is anatomic. Small suprapatellar knee joint effusion. Tibiofemoral compartment chondrocalcinosis. Right ankle: No acute fracture or dislocation. Alignment is anatomic. No substantial joint effusion. The ankle mortise is intact and symmetric. The soft tissues appear unremarkable. Right foot: No acute fracture or dislocation. Alignment is anatomic. Mild Achilles enthesopathy. Soft tissues appear unremarkable. IMPRESSION: No acute osseous injury of the right knee, ankle or foot. Small suprapatellar knee joint effusion. Signed by: Abbie Luque MD on 01/29/2019 1:51 PM
== END 2019-01-29 14:40 | disposition home or self-care (01) ==
LOC: ER 12:43
DX: S93.491A Sprain of other ligament of right ankle, initial encounter (principal); M25.561 Pain in right knee; X50.1XXA Overexertion from prolonged static or awkward postures, initial encounter; Y92.008 Other place in unspecified non-institutional (private) residence as the place of occurrence of the external cause; I10 Essential (primary) hypertension; E11.9 Type 2 diabetes mellitus without complications; E78.5 Hyperlipidemia, unspecified; K76.9 Liver disease, unspecified; I25.2 Old myocardial infarction
CPT/HCPCS: 99284

== ENCOUNTER → 2019-03-23 | Outpatient (CLI) | payer MEDICARE ==
--- NOTE | 2019-03-23 15:40 | Diagnostic Imaging Report ---
EXAM: Right upper quadrant abdominal ultrasound INDICATION: Right upper quadrant pain COMPARISON: CT abdomen and pelvis of 02/02/2016 TECHNIQUE: Transverse and longitudinal images of the right upper quadrant abdomen were obtained FINDINGS: Liver: Size: 15.6 cm in the right midclavicular line, normal Appearance: Increased echogenicity, smooth contour Mass: No focal masses Gallbladder: Status post cholecystectomy. Bile Ducts: Intrahepatic Ducts: No dilatation Extrahepatic Ducts: Common bile duct measures 6 mm. Pancreas: Visualized portions of the pancreatic head, neck and proximal body are normal. Kidney: The right kidney measures 10.9 cm without evidence of hydronephrosis or stone. Vessels: Aorta: Visualized portions are normal Inferior Vena Cava: Visualized portions are normal Main Portal Vein: 0.9 cm, normal size with hepatopetal flow. Free Fluid: No ascites or pleural effusion IMPRESSION: Diffuse hepatic steatosis. Status post cholecystectomy. Signed by: Abbie Luque MD on 03/23/2019 3:37 PM
== END ==
LOC: US 14:37
PROVIDERS: ATTEND Internal Medicine
DX: R10.11 Right upper quadrant pain (principal); K76.0 Fatty (change of) liver, not elsewhere classified
CPT/HCPCS: 76705

== ENCOUNTER 2019-04-05 12:56 | Emergency (ER) | payer MEDICARE ==
[~2019-04-05] VITALS: Ht 167.6 cm; Wt 103.0 kg
[2019-04-05 15:30] LABS: BASOPHILS # (AUTO) 0.1 (0.0-0.1); BASOPHILS % 0.6 % (0.0-1.0); EOSINOPHILS # (AUTO) 0.1 (0.0-0.4); EOSINOPHILS % 1.1 % (0.0-6.0); HEMATOCRIT 42.3 % (34.2-44.1); HEMOGLOBIN 14.6 g/dL (12.0-16.0); LYMPHOCYTES % 30.9 % (18.0-39.1); MEAN CORPUSCULAR HEMOGLOBIN 29.3 pg (28-32); MEAN CORPUSCULAR HGB CONC 34.5 g/dL (31-35); MEAN CORPUSCULAR VOLUME 84.9 fL (81-99); MONOCYTES # (AUTO) 0.6 (0.2-0.8); MONOCYTES % 6.1 % (4.4-11.3); NEUTROPHILS % 60.9 % (38.7-80.0); PLATELET COUNT 351 x10e3/uL (140-360); RED BLOOD COUNT 4.98 x10e6/uL (3.6-5.1); RED CELL DISTRIBUTION WIDTH 12.5 % (11.7-14.4)
[2019-04-05 15:38] LABS: CLARITY,URINE SL CLOUDY (CLEAR); COLOR,URINE YELLOW (YELLOW); LEUKOCYTE ESTERASE ,URINE NEGATIVE (NEGATIVE); NITRITE,URINE NEGATIVE (NEGATIVE); PROTEIN,URINE DIPSTICK NEGATIVE (NEGATIVE); URINE UROBILINOGEN 0.2 mg/dL (0.2 - 1)
[2019-04-05 15:39] LABS: BILIRUBIN,URINE NEGATIVE (NEGATIVE); KETONES,URINE NEGATIVE (NEGATIVE)
[2019-04-05 15:41] LABS: INR 0.93
[2019-04-05 15:42] LABS: PARTIAL THROMBOPLASTIN TIME 32.1 seconds (23.8-35.5)
[2019-04-05 15:49] LABS: ALANINE AMINOTRANSFERASE 16 IU/L (0-55); ALBUMIN 4.3 g/dL (3.5-5.0); ALBUMIN/GLOBULIN RATIO 1.4 (0.8-2.0); ALKALINE PHOSPHATASE 149 IU/L (40-150); ANION GAP 13.2 mmol/L (8-16); BLOOD UREA NITROGEN 10 mg/dL (7-26); BUN/CREATININE RATIO 14 (6-25); CALCIUM 10.1 mg/dL (8.4-10.2); CARBON DIOXIDE 26 mmol/L (22-29); CHLORIDE 103 mmol/L (98-107); CREATININE, SERUM 0.69 mg/dL (0.57-1.11); EST GLOMERULAR FILTRATION RATE > 60 ML/MIN (60-); GLUCOSE 91 mg/dL (74-118); POTASSIUM 3.2 mmol/L (3.5-5.1); SODIUM 139 mmol/L (136-145)
[2019-04-05 15:58] LABS: BACTERIA,URINE MODERATE /HPF; EPITHELIAL CELLS,URINE MODERATE /LPF; MUCUS,URINE MODERATE (RARE)
[2019-04-05 16:19] LABS: CREATINE KINASE MB 0.7 ng/mL (0-5.0)
--- NOTE | 2019-04-05 16:58 | Diagnostic Imaging Report ---
Acute abdominal series, 4 views Clinical indication: Abdominal pain Comparison: 02/16/2019 Findings: PA chest radiograph, and AP supine and upright radiographs of the abdomen were obtained. The heart is within normal size. A right subclavian chest port is in place with distal catheter tip overlying the proximal SVC. The lungs are clear without evidence of focal consolidation, sizable pleural effusion, or pneumothorax. No acute osseous abnormalities. The bowel gas pattern is nonobstructive. Slight densities overlying the pelvis are likely phleboliths. No free air or air-fluid levels are identified. Patient is status post cholecystectomy. Impression: 1. No evidence of obstruction or free air. 2. No radiographic evidence of acute cardiopulmonary process. 3. Status post cholecystectomy. Signed by: Calvin Scanlon MD on 04/05/2019 4:55 PM
[2019-04-05] MEDS ORDERED: MORPHINE SULFATE 2 MG/ML SYR 1ML IV STA (17:13)
[2019-04-05] MEDS ORDERED: ONDANSETRON HCL INJ 2MG/ML 2ML 2 MG/ML VIAL IV ONE (17:13)
[2019-04-05] MEDS ORDERED: POTASSIUM CHLORIDE 10MEQ EA PO ONE (17:15)
[2019-04-05] MEDS ORDERED: MORPHINE SULFATE INJ 4 MG/ML INJ 1ML IV ONE (17:30)
[2019-04-05] MEDS ORDERED: POTASSIUM CHLORIDE 20 MEQ TAB CR PO ONE (17:30)
--- NOTE | 2019-04-05 18:31 | Diagnostic Imaging Report ---
CT Abdomen and Pelvis without contrast INDICATION: Right-sided abdominal pain, history of kidney stones, ^Stone Protocol ^[id number] ^1730 ^Y TECHNIQUE: Thin collimation axial images obtained from the diaphragm to the level of the pubic symphysis without nonionic intravenous contrast. Dose reduction techniques used: Automated exposure control, adjustment of the mAs and/or kVp according to patient size, standardized low-dose protocol, and/or iterative reconstruction technique. RADIATION DOSE: Total DLP: 701.2 mGy*cm Estimated effective dose: (DLP x 0.015 x size factor) mSv CTDIvol has been reviewed. It is below the limits set by the Radiation Protocol Committee (RPC). COMPARISON: Right upper quadrant ultrasound 03/23/2019 CT abdomen/pelvis 02/02/2016. ABDOMEN FINDINGS: Lung Bases: Posterior costophrenic angle subsegmental atelectasis.. The visualized portion of the mediastinum is normal. Liver: Steatosis, improved compared to the 2016 CT. No mass. Gallbladder: Absent. No ductal dilatation. Pancreas: Normal attenuation without mass. Spleen: Normal size without mass. Adrenal Glands: No evidence for mass. Kidneys: Right: No renal calculus. A low attenuating lesion in the posterior interpolar region measures 9 mm and is suggestive of a cyst. An exophytic isoattenuating lesion from the upper pole measures 5 mm and is too small to characterize. This was not visible by ultrasound nor on the previous CT. Left: No renal calculus. Exophytic lower pole low attenuating lesion measures 4 mm and is too small to characterize. This is stable compared to the 2016 CT. Lymph Nodes: No enlarged abdominal or periaortic lymph nodes. Aorta: Diffusely calcified and normal in diameter PELVIS FINDINGS: Bowel: Stomach: Normal. Small Bowel: Normal in caliber with normal wall thickness. Large Bowel: Scattered diverticula. No associated inflammation. No dilatation Appendix: Not visualized. Bladder: Mildly underdistended but otherwise normal. Ureters: No ureteral dilatation or calculus. The uterus is absent. No adnexal mass. Peritoneum/retroperitoneum: No free fluid or fluid collection. Bones: Mild degenerative changes of the lower lumbar spine with postoperative changes at L4-L5 from laminectomy. No spinal hardware. Dural ectasia at the operative site is stable. No compression deformities or focal osseous lesions. IMPRESSION: 1. No evidence of renal calculus or obstructive uropathy. 2. Diverticulosis coli. No evidence for bowel obstruction or inflammation. Nonvisualization of the appendix, if present. 3. Steatosis. 4. Bilateral renal cortical lesions too small to characterize. Recommend further evaluation with CT or MRI dedicated to the kidneys. Signed by: Dr. Shree Banerjee MD on 04/05/2019 6:28 PM
[2019-04-05 19:20] VITALS: BP 150/72
== END 2019-04-05 19:45 | disposition home or self-care (01) ==
LOC: ER 12:56
DX: R10.11 Right upper quadrant pain (principal); R10.13 Epigastric pain; R11.2 Nausea with vomiting, unspecified; R19.7 Diarrhea, unspecified; I10 Essential (primary) hypertension; E11.9 Type 2 diabetes mellitus without complications; I51.9 Heart disease, unspecified; K76.9 Liver disease, unspecified
CPT/HCPCS: 36415; 74022; 74176; 80053; 81001; 82550; 82553; 83735; 84484; 85025; 85610; 85730; 93005; 99284; J2270; J2405

== ENCOUNTER → 2021-06-07 | Outpatient (CLI) | payer MEDICARE ==
[~2021-06-07] MED LIST changes: +ATORVASTATIN CA20 MG PO; +BUTALB-ACETAMI1 EAC3 PO; +CLONIDINE HCL0.1 MG PO; +GABAPENTIN100 MG PO; +IOPAMIDOL 370 MG/ML 200 ML INFUS..BTL INJ ONE; +LISINOPRIL10 MG PO; +POTASSIUM CHLO20 ME1 PO; +SODIUM CHLORIDE 0.9% 50ML 50 ML ONE
[2021-06-07 12:27] LABS: CREATININE, SERUM 0.75 mg/dL (0.57-1.11)
== END ==
LOC: CT 11:15
PROVIDERS: ATTEND Internal Medicine
DX: N28.81 Hypertrophy of kidney (principal); N28.89 Other specified disorders of kidney and ureter
CPT/HCPCS: 36415; 74178; 82565; 84520; Q9967